=== PATIENT | female | born 1995 | race Two or more races ===

== ENCOUNTER 2024-12-29 00:31 | Emergency (ER) | payer BC, OTHER ==
[~2024-12-29] VITALS: Ht 162.6 cm; Wt 117.0 kg
[2024-12-29 01:29] VITALS: BP 141/96; RESP 20; TEMP 98.7; O2SAT 100
[2024-12-29 01:49] LABS: Urine Bacteria FEW /hpf (None Seen); Urine Blood Negative /uL (Negative); Urine Clarity Clear (Clear); Urine Color Colorless (Yellow); Urine Protein, UAD Negative (Negative); Urine Specific Gravity 1.002 (1.001-1.035); Urine Squamous Epithelial Cell FEW /hpf (<5); Urine Urobilinogen Normal (Negative); Urine WBC 1 /HPF (0-5); Urine pH 6.5 (5.0-9.0)
[2024-12-29 02:47] VITALS: PULSE 79
--- NOTE | 2024-12-29 03:13 | ED.PDOC ---
Psychiatric HPI Comments C/C of anxiety x2 weeks. VSS. NKDA. PMH of anxiety, ADHD, thyroid and UTIs. Patient states most panic attack start when she feels like she has sharp shooting pains across her chest and she starts to get panicky. Patient states was seen at urgent care recently prescribed Lexapro 0.25 Xanax states recently started the Lexapro yesterday after of panic attack she took the 0.25 Xanax she states it did not help was not strong enough. Denies SI HI, SA ALVAREZ. Patient appears calm and cooperative at this time. Denies shortness of breath difficulty breathing or chest pain. Chief Complaint: Anxiety Time Seen by MD: 00:38 Reviewed Notes: Nurses Notes, Medications, Allergies Information Source: Patient Mode of Arrival: Ambulatory Past Medical History PAST MEDICAL HISTORY: Thyroid Surgical History: Denies all surgeries RN TRAVEL History: No Pertinent RN TRAVEL History Constitutional: denies: chills, diaphoresis, fatigue, fever, malaise, sweats, weakness, others EENTM: denies: blurred vision, double vision, ear bleeding, ear discharge, ear drainage, ear pain, ear ringing, eye pain, eye redness, hearing loss, mouth pain, mouth swelling, nasal discharge, nose bleeding, nose congestion, nose pain, photophobia, tearing, throat pain, throat swelling, voice changes, others Respiratory: denies: cough, hemoptysis, orthopnea, SOB at rest, shortness of breath, SOB with excertion, stridor, wheezing, others Cardiovascular: denies: chest pain, dizzy spells, diaphoresis, Dyspnea on exertion, edema, irregular heart beat, left arm pain, lightheadedness, palpitations, PND, syncope, others Gastrointestinal: denies: abdomen distended, abdominal pain, blood streaked bowels, constipated, diarrhea, dysphagia, difficulty swallowing, hematemesis, melena, nausea, poor appetite, poor fluid intake, rectal bleeding, rectal pain, vomiting, others Genitourinary: denies: abnormal vagina bleeding, burning, dyspareunia, dysuria, flank pain, frequency, hematuria, incontinence, pain, , vagina discharge, urgency, others Neurological: denies: dizziness, fainting, headache, left sided numbness, left sided weakness, numbness, paresthesia, pre-existing deficit, right sided num bness, right sided weakness, seizure, speech problems, tingling, tremors, weakness, others Musculoskeletal: denies: back pain, gout, joint pain, joint swelling, muscle pain, muscle stiffness, neck pain, others Integumetry: denies: bruises, change in color, change in hair/nails, dryness, laceration, lesions, lumps, rash, wounds, others Allergic/Immunocompromised: denies: Difficulty Healing, Frequent Infections, Hives, Itching, others Hematologic/Lymphatic: denies: anemia, blood clots, easy bleeding, easy bruising, swollen glands, others Endocrine: denies: excessive hunger, excessive sweating, excessive thirst, excessive urination, flushing, intolerance to cold, intolerance to heat, unexplained weight gain, unexplained weight loss, others Psychiatric: denies: anxiety, bipolar disorder, depression, hopeless, panic disorder, schizophrenia, sleepless, suicidal, others Physical Exam General Appearance: No Apparent Distress, Normal HEENT: Normal ENT Inspection, Pharynx Normal, TMs Normal Neck: Full Range of Motion, Non-Tender Respiratory: Chest Non-Tender, Lungs Clear, No Respiratory Distress, Normal Breath Sounds Cardiovascular: No Edema, No JVD, No Murmur, No Gallop, Normal Peripheral Pulses, Regular Rate/Rhythm Breast Exam: Deferred Gastrointestinal: No Organomegaly, Non Tender, No Pulsatile Mass, Normal Bowel Sounds, Soft Genitalia: Deferred Pelvic: Deferred Rectal: Deferred Extremities: No calf tenderness, Normal capillary refill, Normal inspection, Normal range of motion, Non-tender, No pedal edema Musculoskeletal : Apperance: Normal Neurologic: Alert, clutch assembler II-XII nml as Tested, No Motor Deficits, Normal Affect, Normal Mood, No Sensory Deficits Cerebellar Function: Normal Reflexes: Normal Skin: Dry, Normal Color, Warm Lymphatic: No Adenopathy Was a procedure done? Was a procedure done?: No Psych Differential Dx Psych. Differential Dx: Panic Disorder OD Differential Dx: Anxiety, Personality Disorder X-Ray, Labs, Meds, VS Vital Signs Date Time Temp Pulse Resp B/P (MAP) Pulse Ox O2 Delivery O2 Flow Rate FiO2 12/29/24 02:47 79 12/29/24 01:29 98.7 91 20 141/96 (111) 100 98.7 Lab Test 12/29/24 01:15 Range/Units Urine Color Colorless Yellow Urine Clarity Clear Clear Urine pH 6.5 5.0-9.0 Urine Specific [place] 1.002 1.001-1.035 Urine Protein Negative Negative Urine Ketones Negative Negative Urine Blood Negative Negative /uL Urine Nitrite Negative Negative Urine Bilirubin Negative Negative Urine Urobilinogen Normal Negative mg/dL Urine Leukocyte Esterase Negative Negative /uL Urine RBC 1 0 - 4 /hpf Urine Microscopic WBC 1 0-5 /HPF Urine Squamous Epithelial Cells Few <5 /hpf Urine Bacteria Few H None Seen /hpf Urine Glucose Normal Normal mg/dL X-Ray, Labs, Meds, VS Comment UA within normal limits. EKG normal sinus without any ectopy. Advised patient to continue with the Lexapro advised that it may take 2-3 weeks for full therapeutic effects. Continue with the prescribed Xanax as needed for panic attacks advised no alcohol or driving while on medication. Advised to take her medications as prescribed. Also advised patient to follow up with her PCP in 2-3 days for Women's Health blood panel. ER return precautions given patient has indicated understanding and agrees with discharge plan of care. Time of 1ST Reevaluation: 00:38 Reevaluation 1ST: Unchanged Time of 2ND Reevaluation: 03:11 Reevaluation 2ND: Improved Patient Education/Counseling: Diagnosis, Treatment, Prognosis, Need For Follow Up Family Education/Counseling: No Family Present Departure 1 Departure Time of Disposition: 03:10 Impression: Primary Impression: Generalized anxiety disorder with panic attacks Disposition: 01 HOME / SELF CARE / HOMELESS Condition: Stable Discharged With: Self Critical Care Note Critical Care Time?: No Stability Stability form required: RACHAEL Rowan Dec 29, 2024 03:13
--- NOTE | 2025-01-01 12:40 | ECG ---
[facility] Test Date: 2024-12-29 Test Time: 02:44:52 Pat Name: UNA BOWLING Department: ED Room: Gender: F House Principal: CAIN : 1995 Requested By: RACHAEL PERAZA Order Number: [id number] Reading MD: Lon Santamaria Measurements Intervals [place] Rate: 79 P: 54 MA: 146 QRS: 36 QRSD: 107 T: 19 QT: 374 QTc: 429 Interpretive Statements Sinus rhythm Electronically Signed On 01-01-2025 17:30:37 PDT by Lon Santamaria Please click the below link to view image of tracing.
== END 2024-12-29 04:03 | disposition home or self-care (01) ==
LOC: ER 00:31
DX: F41.1 Generalized anxiety disorder (principal); F41.0 Panic disorder [episodic paroxysmal anxiety]; F90.9 Attention-deficit hyperactivity disorder, unspecified type
CPT/HCPCS: 81001; 93005